=== PATIENT | male | born 1995 | race Caucasian/White ===

== ENCOUNTER 2017-01-16 01:33 | Emergency (ER) | payer BC ==
[~2017-01-16] VITALS: Ht 185.4 cm; Wt 81.4 kg
[2017-01-16 01:36] VITALS: TEMP 36.4; Ht 185.4 cm; Wt 81.4 kg
[2017-01-16 01:58] LABS: HEMATOCRIT 41.2 % (42-52); MEAN CELL VOLUME 86.4 fL (80-100); MEAN CORPUSCULAR HEMOGLOBIN 30.6 pg (25-34); MEAN CORPUSCULAR HGB CONC 35.4 g/dl (32-36); PLATELET COUNT 239 K/uL (130-400); RED BLOOD COUNT 4.77 M/uL (4.7-6.1); WHITE BLOOD COUNT 12.09 K/uL (4.8-10.8)
[2017-01-16 02:24] LABS: BUN/CREATININE RATIO 20.7 (10-20); CALCIUM 8.6 mg/dl (8.5-10.1); CREATININE 1.2 mg/dl (0.60-1.40); POTASSIUM 3.8 mmol/L (3.5-5.1)
[2017-01-16 02:26] LABS: ALB/GLOB RATIO 1.3 (0.9-2)
[2017-01-16 02:40] LABS: BASO % 0.3 %; BASO ABS # 0.04 K/uL (0-0.2); COMPLETE YES; EOS % 0.1 %; IG% 0.2 %; LYMPH % 22.8 %; LYMPH ABS # 2.76 K/uL (1.2-3.4); MONO % 3.4 %; NEUT % 73.2 %
[2017-01-16] MEDS ORDERED: CLINDAMYCIN HCL 150 MG CAP PO ONE (06:15)
[2017-01-16] MEDS ORDERED: NORCO 5/325MG HOME PACK PO ONE (06:15)
[2017-01-16] MEDS ORDERED: CLIN300C2 PO (06:29)
[2017-01-16 07:00] VITALS: BP 113/57; PULSE 74; O2SAT 99
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
== END 2017-01-16 07:24 | disposition home or self-care (01) ==
LOC: C.EDA 01:36
DX: S02.609A Fracture of mandible, unspecified, initial encounter for closed fracture (principal); F10.920 Alcohol use, unspecified with intoxication, uncomplicated; S02.92XA Unspecified fracture of facial bones, initial encounter for closed fracture; F17.200 Nicotine dependence, unspecified, uncomplicated; W19.XXXA Unspecified fall, initial encounter; Y90.7 Blood alcohol level of 200-239 mg/100 ml